=== PATIENT | female | born 2005 | race Two or more races ===

== ENCOUNTER 2025-01-31 14:55 | Emergency (ER) | payer MEDICAID ==
[~2025-01-31] VITALS: Ht 154.9 cm; Wt 72.6 kg
[2025-01-31 16:01] LABS: APPEARANCE,URINE CLEAR (CLEAR); BILIRUBIN,URINE NEGATIVE (NEGATIVE); BLOOD, URINE TRACE-INTA Ery/uL (NEGATIVE); COLOR,URINE YELLOW (YELLOW); KETONES,URINE NEGATIVE (NEGATIVE); LEUKOCYTE ESTERASE ,URINE NEGATIVE (NEGATIVE); NITRITE, URINE NEGATIVE (NEGATIVE); PROTEIN,URINE NEGATIVE (NEGATIVE); UGLUCOSE NEGATIVE (NEGATIVE)
[2025-01-31 16:06] LABS: PREGNANCY TEST URINE QUAL NEGATIVE (NEGATIVE)
[2025-01-31] MEDS ORDERED: IBUP-1953 PO (16:18)
[2025-01-31 16:22] LABS: BASOPHILS % (AUTO) 0.5 % (0.0-2.0); EOSINOPHILS % (AUTO) 0.8 % (0.0-6.0); HEMATOCRIT 38 % (33-45); HEMOGLOBIN 13.2 g/dL (11.5-14.8); LYMPHOCYTES % (AUTO) 36.2 % (20.0-44.0); MEAN CORPUSCULAR HEMOGLOBIN 30 PG (26.0-33.0); MEAN CORPUSCULAR HGB CONC 35 g/dl (31.0-36.0); MEAN CORPUSCULAR VOLUME 87 fL (82-100); MONOCYTES # (AUTO) 0.5 K/uL (0.1-1.30); MONOCYTES % (AUTO) 8.3 % (2.0-12.0); NEUTROPHILS % (AUTO) 54.2 % (43.0-81.0); PLATELET COUNT (AUTO) 282 K/uL (150-450); RED BLOOD CELL COUNT(AUTO) 4.35 MIL/uL (4.0-5.2); RED CELL DISTRIBUTION WIDTH 12.8 % (11.5-15.0); WHITE BLOOD COUNT (AUTO) 5.6 K/uL (4.3-11.0)
[2025-01-31 16:39] LABS: CALCIUM, SERUM 9.7 mg/dL (8.5-10.1); CREATININE 0.7 mg/dL (0.6-1.3); POTASSIUM 3.9 mmol/L (3.5-5.1)
[2025-01-31 16:45] LABS: ALBUMIN 4.5 g/dL (3.4-5.0); BILIRUBIN,DIRECT 0.1 mg/dL (0.0-0.2); BILIRUBIN,TOTAL 0.8 mg/dL (0.2-1.0); TOTAL PROTEIN, SERUM 8.4 g/dL (6.4-8.2)
[2025-01-31 16:55] LABS: ADD URINE CULTURE NO; BACTERIA,URINE None seen /HPF (None Seen); MUCUS,URINE Few /LPF (None Seen); SQUAMOUS EPITHELIAL CELL,UR 0-2 /HPF (None Seen); WBC,URINE 0-2 /HPF (0-3)
[2025-01-31 16:57] VITALS: BP 118/76; TEMP 98.3; O2SAT 100
== END 2025-01-31 16:40 | disposition home or self-care (01) ==
LOC: ER 14:59
DX: R10.31 Right lower quadrant pain (principal); Z79.1 Long term (current) use of non-steroidal anti-inflammatories (NSAID)
CPT/HCPCS: 36415; 80048-TC; 80076-TC; 81001; 83690-TC; 84703-TC; 85025-TC

== ENCOUNTER 2025-05-15 16:35 | Emergency (ER) | payer BC, MEDICAID ==
[~2025-05-15] VITALS: Ht 154.9 cm; Wt 68.0 kg
[~2025-05-15 16:35] MED LIST: IBUP-1953 PO
[2025-05-15 16:52] VITALS: TEMP 98.3
[2025-05-15] MEDS ORDERED: LIDOCAINE 5% (PATCH) 1 EA PATCH TP ONE (18:44)
[2025-05-15] MEDS ORDERED: ACETAMINOPHEN 325 MG TABLET ONE (18:45)
[2025-05-15] MEDS: KETOROLAC TROMETHAMINE 15 MG/ML VIAL IM ONE (18:48)
[2025-05-15] MEDS: ACETAMINOPHEN 325 MG TABLET PO ONE (18:49)
[2025-05-15] MEDS: LIDOCAINE 5% (PATCH) 1 EA PATCH TP SCH (18:49)
[2025-05-15] MEDS ORDERED: METH-649 PO (19:11)
[2025-05-15] MEDS ORDERED: LIDO30AD10 TP (19:11)
[2025-05-15] MEDS ORDERED: IBUP-1953 PO (19:11)
[2025-05-15 19:17] VITALS: BP 118/67; O2SAT 99
== END 2025-05-15 19:17 | disposition home or self-care (01) ==
LOC: ER 16:50
DX: M54.42 Lumbago with sciatica, left side (principal); M54.41 Lumbago with sciatica, right side; M53.3 Sacrococcygeal disorders, not elsewhere classified; M54.6 Pain in thoracic spine; M25.552 Pain in left hip; M25.551 Pain in right hip; Z79.1 Long term (current) use of non-steroidal anti-inflammatories (NSAID)
CPT/HCPCS: 72170-TC